=== PATIENT | female | born 1965 | race Caucasian/White ===

== ENCOUNTER 2023-09-01 07:35 | Day surgery (SDC) | payer OTHER ==
[~2023-09-01] VITALS: Ht 149.9 cm; Wt 66.7 kg
[2023-09-01 08:30] VITALS: O2SAT 98
[2023-09-01] MEDS ORDERED: fentaNYL CITRATE/PF 100 MCG/2 ML AMP ONE (09:50)
[2023-09-01] MEDS ORDERED: MIDAZOLAM HCL 5 MG/5 ML VIAL ONE (09:51)
[2023-09-01 12:37] VITALS: BP_SYST 115; PULSE 66; RESP 16
== END 2023-09-01 11:10 | disposition home or self-care (01) ==
LOC: SDS 07:35 → SMU 07:40 → SDS 11:10
PROVIDERS: ATTEND Internal Medicine
DX: Z12.11 Encounter for screening for malignant neoplasm of colon (principal); K64.8 Other hemorrhoids; I10 Essential (primary) hypertension
CPT/HCPCS: 45378; 99152; G0378; J2250; J3010